=== PATIENT | male | born 1965 | race Caucasian/White ===

== ENCOUNTER 2017-06-22 22:52 | Emergency (ER) | payer OTHER | END 2017-06-23 02:00 | disposition home or self-care (01) | LOC: FTE 22:52 | DX: H01.001 Unspecified blepharitis right upper eyelid (principal); I10 Essential (primary) hypertension; Z79.84 Long term (current) use of oral hypoglycemic drugs; Z87.891 Personal history of nicotine dependence | CPT/HCPCS: 99283; Z7502 ==